=== PATIENT | male | born 1970 | race Caucasian/White ===

== ENCOUNTER 2017-04-28 15:00 | Outpatient (CLI) ==
[2017-04-28 15:34] LABS: BASOPHILS # (AUTO) 0.1 K/uL (0-0.2); BASOPHILS % (AUTO) 0.5 % (0.0-3.0); EOSINOPHILS # (AUTO) 0.1 K/ul (0.0-0.7); EOSINOPHILS % (AUTO) 1.2 % (0.0-7.0); HEMATOCRIT 41.1 % (42.0-52.0); HEMOGLOBIN 14.5 g/dl (14.0-18.0); IMMATURE GRANULOCYTE % (AUTO) 0.2 % (0.0-5.0); LYMPHOCYTES # (AUTO) 2.6 K/uL (0.60-3.4); LYMPHOCYTES % (AUTO) 24.2 (10.0-50.0); MEAN CORPUSCULAR HEMOGLOBIN 29.8 pg (27.0-31.0); MEAN CORPUSCULAR HGB CONC 35.3 (31.8-35.4); MEAN CORPUSCULAR VOLUME 84.6 fl (80.0-94.0); MONOCYTES # (AUTO) 1.3 K/uL (0.4-2.0); MONOCYTES % (AUTO) 12.2 (0-10); NEUTROPHILS # (AUTO) 6.7 K/ul (2.0-6.9); NEUTROPHILS % (AUTO) 61.7; PLATELET COUNT 212 10^3/uL (140-440); RED BLOOD COUNT 4.86 10^6/ul (4.70-6.10); WHITE BLOOD COUNT 10.91 K/ul (4.2-10.2)
--- NOTE | 2017-04-28 15:48 | DI ---
EXAM: Abdominal series, 04/28/2017 HISTORY: Left lower quadrant pain COMPARISON: None. FINDINGS / IMPRESSION: There is a slight nonspecific paucity of small bowel gas. The bowel gas pattern is nonobstructive. No acute osseous abnormality.
[2017-04-28 15:53] LABS: ALBUMIN 3.8 g/dL (3.4-5.0); ANION GAP 13.7; BILIRUBIN,TOTAL 0.9 mg/dL (0.00-1.20); BUN/CREATININE RATIO 11.82; CALCIUM 9.3 mg/dL (8.2-10.2); CREATININE 0.93 mg/dL (0.60-1.10); POTASSIUM 3.7 mmol/L (3.5-5.1); TOTAL PROTEIN 7.6 g/dL (6.4-8.2)
== END 2017-04-28 15:01 | disposition home or self-care (01) ==
LOC: RAD 15:00
PROVIDERS: ATTEND Nurse Practitioner Family
DX: R10.32 Left lower quadrant pain (principal)
CPT/HCPCS: 36415; 80053; 82150; 83690; 85025